=== PATIENT | female | born 1975 | race Caucasian/White ===

== ENCOUNTER 2022-02-23 14:35 | Emergency (ER) | payer OTHER ==
[2022-02-23 15:14] VITALS: BP 135/92; PULSE 94; RESP 20; TEMP 98.2; BMI 23.1
[2022-02-23 16:22] LABS: HEMATOCRIT 43.8 % (32.4-45.2); MCH 32.2 pg (25.7-33.7); MCHC 34.2 g/dl (32.0-36.0); MEAN CELL VOLUME 94.3 fl (80-96); MEAN PLT VOLUME 7.8 fl (7.5-11.1); PLATELET COUNT 187.4 10^3/uL (134-434); RBC 4.65 10^6/uL (3.60-5.2); RDW 13.6 % (11.6-15.6); WHITE BLOOD COUNT 3.6 10^3/uL (4.0-10.8)
[2022-02-23 16:40] LABS: INR 1.15 (0.83-1.09); PROTHROMBIN TIME (PATIENT) 13.3 SEC (9.7-13.0)
[2022-02-23 16:42] LABS: ALBUMIN 4.5 g/dl (3.4-5.0); BILIRUBIN,TOTAL 0.7 mg/dl (0.2-1); CALCIUM 9.2 mg/dl (8.5-10); CREATININE 0.6 mg/dl (0.55-1.3); TOT PROT 7.3 g/dl (6.4-8.2)
[2022-02-23 17:49] LABS: PLATELET ESTIMATE ADEQUATE
== END 2022-02-23 17:21 | disposition home or self-care (01) ==
LOC: FER 14:35
DX: R00.0 Tachycardia, unspecified (principal)
CPT/HCPCS: 36415; 80053; 82550; 84484; 84703; 85027; 85610; 93005; 93010; 99283-25; C9803-CS; U0003; U0005